=== PATIENT | female | born 1945 | race Caucasian/White ===

== ENCOUNTER 2016-12-22 18:39 | Emergency (ER) | payer MEDICARE, OTHER ==
[2016-12-22 19:23] VITALS: BP 118/62
--- OUTSIDE RECORDS SUMMARY | 2016-12-22 19:23 | XMS REPORT | Continuity of Care Document ---
:1945 Author Organization [facility] ([facility]) Address [address] [place] [address] Phone [phone] Care Team Providers Name Role Phone Unavailable Primary Care Provider Unavailable Source Comments This disclosure is being made pursuant to the Care Everywhere program, applicable federal and state laws, and may not contain all informaitonavailable regarding this patient.[facility] ([facility]) Active Allergies and Adverse Reactions No Active Allergies Current Medications Not on file Active Problems Not on file Social History Tobacco Use Types Packs/Day Years Used Date Never Assessed Last Filed Vital Signs Vital Sign Reading Time Taken Blood Pressure - - Pulse - - Temperature - - Respiratory Rate - - Height - - Weight 82.8 kg (182 lb 8.6 oz) 12/10/2002 8:06 AM CDT Body Mass Index - - Oxygen Saturation - - Plan of Care Health Maintenance Due Date Last Done Comments HCV Screening 1945 Hepatitis B Vaccine (1 of 3 - Primary Series) 1945 Tdap Vaccine 11/08/1958 Lipid Disorder Screening 11/08/1965 Td Vaccine 11/08/1965 Mammogram 1987 Colonoscopy 11/08/1997 Zoster Vaccine 2007 Osteoporosis Screening (DXA Bone Density) 11/08/2012 Pneumococcal Vaccine (1 of 2 - PCV13) 11/08/2012 Influenza Vaccine: Seasonal (#1) 02/28/2016 Results from Last 3 Months Not on file
--- NOTE | 2016-12-22 19:25 | ERNOTE ---
Integumentary HPI - Narrative Date of Service: 12/22/16 - General Presenting Symptoms: rash Time Seen by Provider: 12/22/16 19:07 Source: patient Exam Limitations: no limitations - Immun/Allergies/Home Medications Immunizations: IMMUNIZATION HX Immunizations Up to Date Yes History of Influenza Vaccine No Hx Pneumococcal Vaccination No Allergies/Adverse Reactions: Allergies Allergy/AdvReac Type Severity Reaction Status Date / Time No Known Allergies Allergy Verified 04/11/16 05:27 Home Medications: HOME MEDICATIONS Aspirin [Aspirin EC] 81 mg PO DAILY 01/01/16 [Last Taken Unknown] B12/Levomefolate Calcium/B-6 [Foltx Tablet] 1 each PO DAILY 01/01/16 [Last Taken Unknown] Benazepril/Hydrochlorothiazide [Lotensin Hct 10-12.5 mg Tablet] 1 each PO DAILY 01/01/16 [Last Taken Unknown] Ergocalciferol [Calciferol, Vitamin D] 50,000 units PO DAILY 01/01/16 [Last Taken Unknown] Gluc Yoo/Chondro Yoo A/Vit C/Mn [Glucosamine Chondroitin Tab] 2 each PO DAILY 11/12 [Last Taken Unknown] Levothyroxine Sodium [Synthroid] 75 mcg PO DAILY 01/01/16 [Last Taken Unknown] Metoprolol Tartrate [Lopressor] 12.5 mg PO BID 01/01/16 [Last Taken Unknown] Ranitidine HCl [Zantac] 150 mg PO DAILY 01/01/16 [Last Taken Unknown] - History of Present Illness Narrative: She had the onset of a rash on Sunday. She has some redness in the left antecubital fossa. She denies any known contact with plants or any other allergen. She has not put anything on it to improve it. There is some swelling on the medial aspect of the antecubital fossa and she is concerned that this might increase in size. She denies any other rash or itch. She denies shortness of breath, tongue swelling, or difficulty swallowing. Date (Duration): 12/19/16 Location: Reports: upper extremity Quality: Reports: itching Severity: mild Exposure: Reports: no cause identified Modifying Factors - (Improves): Reports: nothing Modifying Factors - (Worsens): Reports: nothing Associated Symptoms: Reports: denies symptoms Review of Systems - Review of Systems Constitutional: Present: no symptoms reported Respiratory: Present: no symptoms reported Cardiology: Present: no symptoms reported Gastrointestinal/Abdominal: Present: no symptoms reported Skin: Present: rash - Patient's Past Medical History Patient History - Medical: GERD, Hypothyroidism Patient History - Cardiac/Respiratory: Hypertension Patient History - Cancer: No Hx of Cancer Patient History - Surgical Procedures: T & A, Other Patient History - Other: None LMP (females 10-50): Menopausal - Social History Living Situations: home Abuse History: No History of abuse Psych History: No pertinent hx Smoking Status: Never smoker Alcohol Use: occasionally Drug Use: none - Immunizations Immunizations Up to Date: Yes Hx Pneumococcal Vaccination: No History of Influenza Vaccine: No Physical Exam - Physical Exam General Appearance: Present: wd/wn, alert, no apparent distress Respiratory: Present: no respiratory distress Cardiovascular/Chest: Present: regular rate, rhythm Neurological Exam: Present: alert, oriented Skin Exam: Present: skin rash - left antecubital fossa, faint red, irregular patches, no weeping, no cellulitis. Lymphatic Exam: Present: no adenopathy ED Progress - Vital Signs Vital Signs: Vital Signs 12/22/16 18:46 Temperature 36.8 C Pulse Rate 71 Respiratory 16 Rate Blood Pressure 119/75 O2 Sat by Pulse 95 Oximetry - Progress/Reassessment Chief Complaint: Rash Plan - Plan Plan: Reassured, Home. HC cream prn. FU prn. Departure Clinical Impression: Contact dermatitis - Departure Disposition: Home self-care Condition: Good Instructions: Contact Dermatitis Additional Instructions: You may use hydrocortisone cream on the rash 2-3 times daily until gone. Referrals: Vikki Lantigua, [employer] [Primary Care Provider] -
== END 2016-12-22 19:15 | disposition home or self-care (01) ==
LOC: ER 18:39
DX: L25.9 Unspecified contact dermatitis, unspecified cause (principal); K21.9 Gastro-esophageal reflux disease without esophagitis; I10 Essential (primary) hypertension; E03.9 Hypothyroidism, unspecified